=== PATIENT | female | born 1960 | race Asian ===

== ENCOUNTER 2017-06-10 13:27 | Emergency (ER) | payer OTHER ==
[~2017-06-10] VITALS: Ht 165.1 cm; Wt 54.4 kg
[2017-06-10 13:42] VITALS: BP 126/108
--- NOTE | 2017-06-10 13:47 | NUR ---
PT AMB TO BED 8
--- NOTE | 2017-06-10 13:48 | NUR ---
C/O LBP X2 DAYS. PT STATES SHE WAS ATTEMPTING TO LIFT SOMETHING OFF THE FLOOR AND FELT IMMEDIATE PAIN IN HER LOWER BACK. DENIES N/V/D; SKIN IS PINK/WARM/DRY; AAOX4 WITH EVEN AND STEADY GAIT; LUNGS CLEAR BL; HR EVEN AND REGULAR; PT DENIES ANY FEVER, CP, SOB, OR COUGH AT THIS TIME; PATIENT STATES PAIN OF 8/10 AT THIS TIME; VSS; PATIENT POSITIONED FOR COMFORT; HOB ELEVATED; BEDRAILS UP X2; BED DOWN. ER MD MADE AWARE OF PT STATUS.
--- NOTE | 2017-06-10 13:59 | NUR ---
Patient being evaluated by OCHOA at bedside.
[2017-06-10] MEDS ORDERED: HYDROcodone/APAP 5/325 MG 1 TAB TAB PO ONE (14:10)
--- NOTE | 2017-06-10 14:13 | NUR ---
PT TAKEN TO CT VIA GURABENA, ACCOMPANIED BY CRISTINA TECT.
--- NOTE | 2017-06-10 14:38 | NUR ---
lab at bedside.
--- NOTE | 2017-06-10 14:45 | NUR ---
pt sts pain3/10.Patient appears to be resting comfortably in bed. Vital Signs within normal limits. Respirations even and unlabored.WILL CONTINUE TO MONITOR.
[2017-06-10 14:52] LABS: BASOPHILS # (AUTO) 0.3 K/uL (0.00-0.22); EOSINOPHILS # (AUTO) 0.2 K/uL (0-0.4); EOSINOPHILS % (AUTO) 3.9 % (0.0-4.0); HEMATOCRIT 41.4 % (36-48); HEMOGLOBIN 13.4 g/dL (12.0-16.0); LYMPHOCYTES # (AUTO) 1.2 K/uL (2.5-16.5); LYMPHOCYTES % (AUTO) 19.6 % (20.5-51.1); MEAN CORPUSCULAR HEMOGLOBIN 30 pg (27-31); MEAN CORPUSCULAR HGB CONC 33 g/dL (33-37); MEAN CORPUSCULAR VOLUME 92 fL (80-94); MONOCYTES # (AUTO) 0.4 K/uL (0.8-1.0); MONOCYTES % (AUTO) 6.1 % (1.7-9.3); NEUTROPHILS # (AUTO) 4.1 K/uL (1.8-7.7); PLATELET COUNT (AUTO) 239 K/uL (140-450); RED BLOOD CELL COUNT(AUTO) 4.51 MIL/uL (4.20-5.40); WHITE BLOOD COUNT (AUTO) 6.2 K/uL (4.8-10.8)
[2017-06-10 15:03] LABS: ANION GAP 6.6 (8-16); CREATININE 0.8 mg/dL (0.6-1.3); POTASSIUM 3.6 mmol/L (3.5-5.1)
[2017-06-10 15:15] LABS: ALBUMIN 4.1 g/dL (3.4-5.0); TOTAL BILIRUBIN 0.4 mg/dL (0.0-1.0)
--- NOTE | 2017-06-10 15:21 | NUR ---
Patient being reevaluated by OCHOA at bedside.
[2017-06-10 15:40] VITALS: BP 112/74
--- NOTE | 2017-06-10 15:40 | NUR ---
Patient discharged with v/s stable. Written and verbal after care instructions given and explained. Patient alert, oriented and verbalized understanding of instructions. Ambulatory with steady gait. All questions addressed prior to discharge. ID band removed. Patient advised to follow up with PMD. Rx of NAPROXEN & NORCO given. Patient educated on indication of medication including possible reaction and side effects. Opportunity to ask questions provided and answered.
== END 2017-06-10 15:40 | disposition home or self-care (01) ==
LOC: MED 13:27
DX: M51.26 Other intervertebral disc displacement, lumbar region (principal); H47.9 Unspecified disorder of visual pathways; Z88.1 Allergy status to other antibiotic agents
CPT/HCPCS: 36415; 70450; 72125; 72131; 80053; 81002; 85025; 99285

== ENCOUNTER 2019-04-18 13:43 | Inpatient (IN) | payer OTHER ==
[~2019-04-18] VITALS: Ht 157.5 cm; Wt 48.5 kg
[2019-04-18 13:47] VITALS: BP 139/81
--- NOTE | 2019-04-18 14:00 | NUR ---
Patient ambulated to bed 3. RN evaluating patient at bedside.
--- NOTE | 2019-04-18 14:05 | NUR ---
PT C/O SHARP CP X3 DAYS. PT REPORTS MIDSTERNAL CP THAT RADIATES TO LT NECK AND SHOULDER AT 10/10. PT ALSO C/O BOTH HANDS NUMBNESS, PALPITATION, AND HEADACHE AFTER EARTHQUAKE. DENIES N/V/D; SKIN IS PINK/WARM/DRY; AAOX4 WITH EVEN AND STEADY GAIT; LUNGS CLEAR BL; HR EVEN AND REGULAR; PT DENIES ANY FEVER, SOB, OR COUGH AT THIS TIME; PATIENT STATES PAIN OF 10/10 AT THIS TIME; VSS; PATIENT POSITIONED FOR COMFORT; HOB ELEVATED; BEDRAILS UP X1; BED DOWN. ER MD MADE AWARE OF PT STATUS.
[2019-04-18 15:36] LABS: MEAN CORPUSCULAR HEMOGLOBIN 17 pg (27-31); MEAN CORPUSCULAR HGB CONC 28 g/dL (33-37); MEAN CORPUSCULAR VOLUME 59.2 fL (80-94); RED BLOOD CELL COUNT(AUTO) 2.45 MIL/uL (4.20-5.40); RED CELL DISTRIBUTION WIDTH 18.5 % (11.6-13.7); WHITE BLOOD COUNT (AUTO) 3.2 K/uL (4.8-10.8)
[2019-04-18 16:04] LABS: ANION GAP 14.5 (8-16); CARBON DIOXIDE 24.3 mmol/L (21-32); CREATININE 0.7 mg/dL (0.6-1.3); POTASSIUM 3.8 mmol/L (3.5-5.1)
[2019-04-18 16:18] LABS: ALBUMIN 3.6 g/dL (3.4-5.0); HEMATOCRIT 14.5 % (36-48); HEMOGLOBIN 4.1 g/dL (12.0-16.0); THYROID STIMULATING HORMONE 2.95 uIU/mL (0.34-3.74); TOTAL BILIRUBIN 0.4 mg/dL (0.0-1.0)
[2019-04-18 16:55] LABS: PLATELET COUNT,MANUAL 240 K/uL (150-450)
[2019-04-18 16:57] LABS: PLATELET COUNT (AUTO) 226 K/uL (140-450)
--- NOTE | 2019-04-18 16:58 | NUR ---
Dr. Hooper evaluating patient at bedside.
[2019-04-18 17:02] LABS: PROTHROMBIN TIME 9.9 secs (10.8-13.4)
[2019-04-18 17:04] LABS: LYMPHOCYTES % (MANUAL) 9 % (20-46); MONOCYTES % (MANUAL) 1 % (5-12)
[2019-04-18] MEDS ORDERED: ALBUTEROL 0.083% 2.5 MG/3 ML NEBU INH PRN (17:05)
[2019-04-18] MEDS ORDERED: ONDANSETRON 4 MG/2 ML VIAL IVP PRN (17:05)
[2019-04-18] MEDS ORDERED: HYDROcodone/APAP 5/325 MG 1 TAB TAB PO PRN (17:05)
[2019-04-18] MEDS ORDERED: MORPHINE SULFATE 4 MG/ML SYR IVP PRN (17:05)
[2019-04-18] MEDS ORDERED: ACETAMINOPHEN 325 MG TAB PO PRN (17:05)
--- NOTE | 2019-04-18 17:55 | NUR ---
RECEIVED REPORT FROM ER NURSEERIN. PATIENT AMBULATED TO BED FROM WHEELCHAIR WITH STEADY GAIT. VITAL SIGNS STABLE, BLOOD PRESSURE IN THE LOW NORMAL AT 95/54. SATING WELL ON RA, NO SIGNS OF DISTRESS NOTED. ORIENTED PATIENT TO ROOM AND UNIT AND PROVIDED CALL LIGHT. ALL NEEDS MET AT THIS TIME. SAFETY PRECAUTIONS IN PLACE.
--- NOTE | 2019-04-18 17:55 | NUR ---
Patient will be admitted to care of severe anemia. Admited to Telemetry. Will go to room 125B. Belongings list completed. Report to STAS Palomo.
--- NOTE | 2019-04-18 19:13 | NUR ---
ZEFERINO REPORT TO ADMINISTRATIVE ASSISTANT FRONT DESK RNOLIVER. PATIENT IN STABLE CONDITION, RESTING IN BED, SAFETY PRECAUTIONS IN PLACE.
[2019-04-18 19:14] VITALS: BP 92/37
--- NOTE | 2019-04-18 19:14 | NUR ---
RECEIVED REPORT FROM DAY SHIFT NURSE NAVNEET-RN AT BEDSIDE. PT RESTING IN BED, AOX4, ON ROOM AIR WITH RIGHT AC #20G-SL. DISCUSSED PLAN OF CARE AND PT VERBALIZED UNDERSTANDING. NO S/S OF RESPIRATORY DISTRESS OR DISCOMFORT NOTED AT THIS TIME. BED IN LOWEST POSITION, BED BREAKS ON, BOTH SIDE RAILS UP. BEDSIDE TABLE AND CALL LIGHT ARE WITHIN REACH. WILL CONTINUE TO MONITOR.
--- NOTE | 2019-04-18 20:00 | NUR ---
VITAL SIGNS TAKEN AND TOLERATED WELL. MRSA NARES SWAB COLLECTED. NO S/S OF RESPIRATORY DISTRESS OR DISCOMFORT NOTED AT THIS TIME. WILL CONTINUE TO MONITOR.
--- NOTE | 2019-04-18 20:34 | NUR ---
PT C/O HEADACHE- TYLENOL WAS GIVEN AND TOLERATED WELL. NO S/S OF RESPIRATORY DISTRESS OR DISCOMFORT NOTED AT THIS TIME. WILL CONTINUE TO MONITOR.
--- NOTE | 2019-04-18 21:00 | NUR ---
SPOKE WITH DR. GARCIAS REGARDING CT WITH CONTRAST CONSENT AND BLOOD TRANSFUSION. MD CURRENTLY DOES NOT HAVE A FAX AVAILABLE AND WILL SIGN CONSENTS ONCE ON HOSPITAL GROUNDS TOMORROW. RADIOLOGY DEPARTMENT AWARE AND WILL SCHEDULED CT ACCORDINGLY. CHARGE NURSE NOEMY AWARE. CONSENT FOR BLOOD TRANSFUSION SIGNED AND IN PT CHART.
--- NOTE | 2019-04-18 23:00 | NUR ---
PT RESTING IN BED. NO S/S OF RESPIRATORY DISTRESS OR DISCOMFORT NOTED AT THIS TIME. WILL CONTINUE TO MONITOR.
[2019-04-19] VITALS: BP 80/47
--- NOTE | 2019-04-19 | NUR ---
VITAL SIGNS TAKEN AND TOLERATED WELL. NO S/S OF RESPIRATORY DISTRESS OR DISCOMFORT NOTED AT THIS TIME. WILL CONTINUE TO MONITOR.
--- NOTE | 2019-04-19 01:20 | NUR ---
FIRST UNIT OF RBC'S STARTED AND TOLERATING WELL. NO S/S OF RESPIRATORY DISTRESS OR DISCOMFORT NOTED AT THIS TIME. WILL CONTINUE TO MONITOR.
--- NOTE | 2019-04-19 02:00 | NUR ---
PT SLEEPING IN BED. NO S/S OF RESPIRATORY DISTRESS OR DISCOMFORT NOTED AT THIS TIME. WILL CONTINUE TO MONITOR.
[2019-04-19 04:00] VITALS: BP 95/55
--- NOTE | 2019-04-19 04:00 | NUR ---
VITAL SIGNS TAKEN AND TOLERATED WELL. NO S/S OF RESPIRATORY DISTRESS OR DISCOMFORT NOTED AT THIS TIME. WILL CONTINUE TO MONITOR.
--- NOTE | 2019-04-19 05:10 | NUR ---
SECOND BAG OF RBC'S HAS BEEN STARTED. PT TOLERATING WELL. NO S/S OF RESPIRATORY DISTRESS OR DISCOMFORT NOTED AT THIS TIME. WILL CONTINUE TO MONITOR.
--- NOTE | 2019-04-19 06:00 | NUR ---
PT SLEEPING IN BED. NO S/S OF RESPIRATORY DISTRESS OR DISCOMFORT NOTED AT THIS TIME. WILL CONTINUE TO MONITOR.
--- NOTE | 2019-04-19 07:20 | NUR ---
RECEIVED BEDSIDE REPORT FROM MISSILE MECHANIC NURSE FOR CONTINUITY OF CARE. PATIENT IS AWAKE AND RESTING ON BED AT THIS TIME. PATIENT IS AAOX4. RESPIRATION EVEN AND UNLABORED ON RA. DENIED PAIN AND SOB AT THIS TIME. NO SIGNS OF DISTRESS NOTED. IV ON RAC 20G, CLEAN AND INTACT, SL PER MD ORDER.SKIN INTACT AND CLEAN. PATIENT IS ABLE TO AMBULATE WITH STEADY GAIT AND CONTINENT. DISCUSSED PLAN OF CARE WITH PATIENT AND PATIENT VERBALIZED UNDERSTANDING. SAFETY MEASURES IN PLACE. BED IN LOW POSITION AND CALL LIGHT WITHIN REACH. INSTRUCTED PATIENT TO USE THE CALL LIGHT FOR ANY ASSISTANCE AND PATIENT WAS AWARE.
[2019-04-19 08:00] VITALS: BP 95/64
--- NOTE | 2019-04-19 08:11 | NUR ---
PATIENT HAS BEEN SCREENED AND CATEGORIZED MODERATE NUTRITION RISK. PATIENT WILL BE SEEN WITHIN 3-5 DAYS OF ADMISSION. 04/21/19[address]
--- NOTE | 2019-04-19 09:35 | NUR ---
PATIENT IS GETTING BLOOD TRANSFUSION AT THIS TIME. NO ALLERGIC REACTION. DENIED PAIN AND SOB. VITAL SIGNS ARE WITHIN PATIENT'S NORMAL PARAMETER. NO SIGNS OF DISTRESS NOTED. SAFETY MEASURES IN PLACE. TELE MONITOR ATTACHED. BED IN LOW POSITION AND CALL LIGHT WITHIN REACH. INSTRUCTED PATIENT TO USE THE CALL LIGHT FOR ANY ASSISTANCE AND PATIENT WAS AWARE.
--- NOTE | 2019-04-19 11:32 | NUR ---
CONTACTED [facility] AT [phone], SPOKE TO JESSICA. SHE WAS ABLE TO PROVIDE ME WITH APRIL 27, 2019 AT 0830 FOR FOLLOW UP VISIT. COPY OF APPOINTMENT PROVIDED TO THE PATIENT.
--- NOTE | 2019-04-19 11:35 | NUR ---
PATIENT IS RESTING ON BED. BLOOD TRANSFUSION IS INFUSING. RESPIRATION EVEN AND UNLABORED ON RA. PATIENT DENIED PAIN AND SOB. NO BLOOD TRANSFUSION ALLERGIC REACTION NOTED. VITAL SIGNS MONITOR CLOSELY. SAFETY MEASURES IN PLACE. TELE MONITOR IN PLACE. BED IN LOW POSITION AND CALL LIGHT WITHIN REACH. INSTRUCTED PATIENT TO USE THE CALL LIGHT FOR ANY ASSISTANCE AND PATIENT WAS AWARE.
[2019-04-19 12:00] VITALS: BP 101/62
--- NOTE | 2019-04-19 13:10 | NUR ---
PATIENT FINISHED THE 3RD BAG OF BLOOD TRANSFUSION. NO ALLERGIC REACTION NOTED. RESPIRATION EVEN AND UNLABORED ON RA. VITAL SIGNS ARE WITHIN NORMAL PARAMETER; TEMP 98.5, BP 105/71, PULSE 60, RR 18, AND DENIED PAIN. NO SIGNS OF DISTRESS NOTED. PATIENT IS AWAKE AND TALKING ON HER PHONE AT THIS TIME. SAFETY MEASURES IN PLACE. TELE MONITOR ATTACHED. BED IN LOW POSITION AND CALL LIGHT WITHIN REACH. INSTRUCTED PATIENT TO USE THE CALL LIGHT FOR ANY ASSISTANCE AND PATIENT WAS AWARE.
--- NOTE | 2019-04-19 14:17 | NUR ---
STARTED 4TH BAG OF RBC, PATIENT TOLERATED WELL. NO ALLERGIC REACTION NOTED. DENIED PAIN AND SOB. VITAL SIGNS ARE WITHIN PATIENT'S NORMAL PARAMETER. PATIENT IS USING HER PHONE ON BED. SAFETY MEASURES IN PLACE. TELE MONITOR ATTACHED. BED IN LOW POSITION AND CALL LIGHT WITHIN REACH. INSTRUCTED PATIENT TO USE THE CALL LIGHT FOR ANY ASSISTANCE AND PATIENT WAS AWARE.
--- NOTE | 2019-04-19 15:15 | NUR ---
PATIENT IS RECEIVING BLOOD TRANSFUSION AT THIS TIME. RESPIRATION EVEN AND UNLABORED ON RA. DENIED PAIN. VITAL SIGNS ARE NORMAL WITHIN PATIENT'S PARAMETER; TEMP 98.2, BP 109/73, PULSE 73, RR 18, AND DENIED PAIN. NO BLOOD TRANSFUSION ALLERGIC REACTION NOTED. SAFETY MEASURES IN PLACE. TELE MONITOR ATTACHED. BED IN LOW POSITION AND CALL LIGHT WITHIN REACH. INSTRUCTED PATIENT TO USE THE CALL LIGHT FOR ANY ASSISTANCE AND PATIENT WAS AWARE.
[2019-04-19 16:00] VITALS: BP 110/69
--- NOTE | 2019-04-19 17:25 | NUR ---
PATIENT HAS COMPLETED THE LAST UNIT OF RBC. PATIENT IS AWAKE AND RESTING ON BED. PATIENT DENIED PAIN AND SOB. NO BLOOD TRANSFUSION ALLERGIC REACTION NOTED. VITALS SIGNS TAKEN; TEMP 98.3, PULSE 60, BP 109/70, RR 18. SAFETY MEASURES IN PLACE. TELE MONITOR IN PLACE. BED IN LOW POSITION AND CALL LIGHT WITHIN REACH. INSTRUCTED PATIENT TO USE THE CALL LIGHT FOR ANY ASSISTANCE AND PATIENT WAS AWARE.
--- NOTE | 2019-04-19 18:15 | NUR ---
PATIENT IS GOING TO THE RADIOLOGY DEPT FOR CT SCAN AND ACCOMPANIED BY CRISTINA ROCA. PATIENT IS IN STABLE CONDITION. NO SIGNS OF DISTRESS NOTED.
--- NOTE | 2019-04-19 18:27 | NUR ---
PATIENT CAME BACK FROM CT SCAN. NO SIGNS OF DISTRESS NOTED. SAFETY MEASURES IN PLACE. TELE MONITOR ATTACHED. BED IN LOW POSITION AND CALL LIGHT WITHIN REACH. INSTRUCTED PATIENT TO USE THE CALL LIGHT FOR ANY ASSISTANCE AND PATIENT WAS AWARE.
--- NOTE | 2019-04-19 19:05 | NUR ---
RECEIVED BEDSIDE REPORT FROM DAY SHIFT NURSE. PATIENT IS AWAKE, ALERT, AND COOPERATIVE. RESPIRATION EVEN UNLABORED ON ROOM AIR. NO DISTRESS NOTED. SKIN IS WARM AND DRY. IV PATENT AND INTACT. PLAN OF CARE WAS DISCUSSED. ALL SAFETY MEASURES IN PLACE. BED IS AT LOW POSITION. CALL LIGHT WITHIN REACH AND VERBALIZES ITS USE. WILL CONTINUE TO MONITOR.
--- NOTE | 2019-04-19 19:15 | NUR ---
ENDORSED PATIENT AT BEDSIDE TO FAT PURIFICATION WORKER NURSE FOR CONTINUITY OF CARE. PATIENT IS AWAKE AND RESTING ON BED. NO SIGNS OF DISTRESS NOTED. SAFETY MEASURES IN PLACE. TELE MONITOR IN PLACE. BED IN LOW POSITION AND CALL LIGHT WITHIN REACH.
[2019-04-19 19:54] LABS: BASOPHILS % (AUTO) 0.8 % (0.0-2.0); EOSINOPHILS # (AUTO) 0.2 K/uL (0-0.4); EOSINOPHILS % (AUTO) 2.5 % (0.0-4.0); HEMATOCRIT 31.6 % (36-48); HEMOGLOBIN 10.2 g/dL (12.0-16.0); LYMPHOCYTES # (AUTO) 0.9 K/uL (2.5-16.5); LYMPHOCYTES % (AUTO) 13.1 % (20.5-51.1); MEAN CORPUSCULAR HEMOGLOBIN 24 pg (27-31); MEAN CORPUSCULAR HGB CONC 32 g/dL (33-37); MEAN CORPUSCULAR VOLUME 73.6 fL (80-94); MONOCYTES # (AUTO) 0.5 K/uL (0.8-1.0); MONOCYTES % (AUTO) 7.4 % (1.7-9.3); NEUTROPHILS % (AUTO) 76.2 % (42.2-75.2); PLATELET COUNT (AUTO) 187 K/uL (140-450); RED BLOOD CELL COUNT(AUTO) 4.29 MIL/uL (4.20-5.40); RED CELL DISTRIBUTION WIDTH 27.6 % (11.6-13.7); WHITE BLOOD COUNT (AUTO) 6.5 K/uL (4.8-10.8)
[2019-04-19 20:00] VITALS: BP 109/69
--- NOTE | 2019-04-19 20:00 | NUR ---
INITIAL ASSESSMENT DONE. VITALS WERE TAKEN. PATIENT CONDITION STABLE. NO DISTRESS NOTED. WILL CONTINUE TO MONITOR.
[2019-04-19 20:08] LABS: ANION GAP 14.1 (8-16); CARBON DIOXIDE 25.3 mmol/L (21-32); CREATININE 0.8 mg/dL (0.6-1.3); POTASSIUM 4.4 mmol/L (3.5-5.1)
[2019-04-19 20:27] LABS: MAGNESIUM 2.1 mg/dL (1.8-2.4); PHOSPHORUS 3.8 mg/dL (2.5-4.9)
--- NOTE | 2019-04-19 21:00 | NUR ---
CHECKED PATIENT. PATIENT IN BED WATCHING TV RESPIRATION EVEN UNLABORED ON ROOM AIR. NO DISTRESS NOTED. WILL CONTINUE TO MONITOR.
--- NOTE | 2019-04-19 22:30 | NUR ---
CHECKED PATIENT. PATIENT SLEEPING RESPIRATION EVEN UNLABORED ON ROOM AIR. NO DISTRESS NOTED. WILL CONTINUE TO MONITOR.
[2019-04-20] VITALS: BP 118/73
--- NOTE | 2019-04-20 | NUR ---
VITALS WERE TAKEN. PATIENT CONDITION STABLE. NO DISTRESS NOTED. DENIES PAIN. WILL CONTINUE TO MONITOR.
--- NOTE | 2019-04-20 02:00 | NUR ---
CHECKED ON PATIENT. PATIENT SLEEPING RESPIRATION EVEN UNLABORED ON ROOM AIR. NO DISTRESS NOTED. WILL CONTINUE TO MONITOR.
[2019-04-20 04:00] VITALS: BP 104/64
--- NOTE | 2019-04-20 04:00 | NUR ---
VITALS WERE TAKEN. PATIENT CONDITION STABLE. DENIES PAIN AND NO DISTRESS NOTED. WILL CONTINUE TO MONITOR.
[2019-04-20 06:12] LABS: BASOPHILS # (AUTO) 0.1 K/uL (0.00-0.22); EOSINOPHILS # (AUTO) 0.2 K/uL (0-0.4); HEMOGLOBIN 10.1 g/dL (12.0-16.0); MEAN CORPUSCULAR HEMOGLOBIN 24 pg (27-31); MEAN CORPUSCULAR HGB CONC 32 g/dL (33-37); MONOCYTES # (AUTO) 0.4 K/uL (0.8-1.0); RED BLOOD CELL COUNT(AUTO) 4.26 MIL/uL (4.20-5.40)
[2019-04-20 06:16] LABS: CARBON DIOXIDE 25.2 mmol/L (21-32); CREATININE 0.8 mg/dL (0.6-1.3); POTASSIUM 4.2 mmol/L (3.5-5.1)
[2019-04-20 06:28] LABS: MAGNESIUM 2.2 mg/dL (1.8-2.4); PHOSPHORUS 3.6 mg/dL (2.5-4.9)
[2019-04-20 06:36] LABS: BASOPHILS % (AUTO) 1.3 % (0.0-2.0); EOSINOPHILS % (AUTO) 3.3 % (0.0-4.0); HEMATOCRIT 31.2 % (36-48); LYMPHOCYTES % (AUTO) 18.5 % (20.5-51.1); MEAN CORPUSCULAR VOLUME 73.2 fL (80-94); NEUTROPHILS # (AUTO) 3.8 K/uL (1.8-7.7); NEUTROPHILS % (AUTO) 68.9 % (42.2-75.2); PLATELET COUNT (AUTO) 184 K/uL (140-450); RED CELL DISTRIBUTION WIDTH 27.5 % (11.6-13.7); WHITE BLOOD COUNT (AUTO) 5.5 K/uL (4.8-10.8)
--- NOTE | 2019-04-20 07:20 | NUR ---
ENDORSED PATIENT TO DAY SHIFT NURSE FOR CONTINUITY OF CARE. PATIENT IN STABLE CONDITION.
--- NOTE | 2019-04-20 07:35 | NUR ---
RECEIVED REPORT FROM CONTESTANT COORDINATOR NURSE. PT AAOX4, COOPERATIVE. RESPIRATIONS EVEN AND UNLABORED ON RA. IV ON RT AC 20 GA ON SALINE LOCK, FLUSHING WITH NO RESISTANCE. STOMACH IS SOFT, LBM 7/9. NO C/O PAIN AT THIS TIME. SKIN IS INTACT, WARM TO TOUCH. EXPLAINED POC TO PT, PT VERBALIZED UNDERSTANDING. CALL LIGHT WITHIN REACH. WILL CONTINUE TO MONITOR.
[2019-04-20 08:00] VITALS: BP 98/66
[2019-04-20 12:00] VITALS: BP 105/71
--- NOTE | 2019-04-20 12:00 | NUR ---
PT HAS NO C/O PAIN AND NO SIGNS OF DISTRESS AT THIS TIME. PT IS EATING LUNCH, CALM AND COOPERATIVE.
--- NOTE | 2019-04-20 15:35 | NUR ---
PT GIVEN DISCHARGE INSTRUCTIONS. ALL PAPERWORK SIGNED AND QUESTIONS ANSWERED. ALL BELONGINGS ARE IN PT POSSESSION. IV DC'ed, CANNULA INTACT, NO ACTIVE BLEEDING NOTED. WRISTBANDS AND TELE MONITOR REMOVED. PATIENT REFUSED W/C. AMBULATE OUT OF UNITY WITH STEADY GAIT, ACCOMPANIED BY NURSE. PATIENT IS IN STABLE CONDITION.
== END 2019-04-20 15:35 | disposition home or self-care (01) | DRG 663 ==
LOC: MED 13:43 → MMU 17:04
PROVIDERS: ADMIT Internal Medicine Pulmonary Disease; ATTEND Internal Medicine Pulmonary Disease
PROC: 30233N1 Transfusion of Nonautologous Red Blood Cells into Peripheral Vein, Percutaneous Approach (ICD-10-PCS; principal; 2019-04-19)
DX: D64.9 Anemia, unspecified (principal); F41.9 Anxiety disorder, unspecified; Z88.1 Allergy status to other antibiotic agents
CPT/HCPCS: 36415; 71045; 80048; 80053; 82728; 83540; 83735; 84100; 84443; 84484; 85025; 85045; 85610; 85730; 86886; 86900; 86901; 86920; 87081; 93005; 99285; J7030; P9016; Q0092; Q9967

== ENCOUNTER 2020-09-05 19:26 | Inpatient (IN) | payer OTHER, SELFPAY ==
[~2020-09-05] VITALS: Ht 154.9 cm; Wt 50.8 kg
[2020-09-05 19:37] VITALS: BP 101/60
--- NOTE | 2020-09-05 19:59 | NUR ---
PT SENT TO LOBBY- WAITING FOR A ROOM IN THE ED. PT IS NOT IN ANY ACUTE DISTRESS AT THIS TIME.
[2020-09-05 21:12] LABS: BASOPHILS % (AUTO) 0.5 % (0.0-2.0); EOSINOPHILS % (AUTO) 0.4 % (0.0-4.0); LYMPHOCYTES # (AUTO) 0.5 K/uL (2.5-16.5); LYMPHOCYTES % (AUTO) 9.7 % (20.5-51.1); MEAN CORPUSCULAR HEMOGLOBIN 22 pg (27-31); MEAN CORPUSCULAR HGB CONC 31 g/dL (33-37); MEAN CORPUSCULAR VOLUME 70.3 fL (80-94); MONOCYTES # (AUTO) 0.2 K/uL (0.8-1.0); MONOCYTES % (AUTO) 4.6 % (1.7-9.3); NEUTROPHILS # (AUTO) 4.4 K/uL (1.8-7.7); NEUTROPHILS % (AUTO) 84.8 % (42.2-75.2); PLATELET COUNT (AUTO) 221 K/uL (140-450); RED BLOOD CELL COUNT(AUTO) 2.32 MIL/uL (4.20-5.40); RED CELL DISTRIBUTION WIDTH 16.8 % (11.6-13.7); WHITE BLOOD COUNT (AUTO) 5.2 K/uL (4.8-10.8)
--- NOTE | 2020-09-05 21:14 | NUR ---
CRITICAL LAB REC[facility]ED [facility]: HEMOGLOBIN 5.0, HEMATOCRIT 16.3. ERMD MADE AWARE.
[2020-09-05 21:15] LABS: HEMATOCRIT 16.3 % (36-48)
[2020-09-05 21:24] LABS: ALBUMIN 3.7 g/dL (3.4-5.0); CARBON DIOXIDE 26.7 mmol/L (21-32); CREATININE 0.6 mg/dL (0.6-1.3); POTASSIUM 3.7 mmol/L (3.5-5.1); TOTAL BILIRUBIN 0.3 mg/dL (0.0-1.0)
--- NOTE | 2020-09-05 21:28 | NUR ---
PT AMBULATED TO RESTROOM IN THE LOBBY WITH STEADY GAIT. NO ACUTE DISTRESS AT THIS TIME
--- NOTE | 2020-09-05 21:31 | NUR ---
PT AMBULATED FROM THE LOBBY RESTROOM BACK TO HER CHAIR IN THE LOBBY WITH STEADY GAIT. PT IS NOT IN ACUTE DISTRESS AT THIS TIME
--- NOTE | 2020-09-05 21:42 | NUR ---
PT AMBULATED TO BED 7
--- NOTE | 2020-09-05 21:46 | NUR ---
Dr. Avina examining patient.
--- NOTE | 2020-09-05 21:50 | NUR ---
Female Jitney Driver accompanied female patient for Rectal Exam BY DR. TELLO.
--- NOTE | 2020-09-05 22:20 | NUR ---
CONSENT SIGNED FOR BLOOD TRANSFUSION
[2020-09-05] MEDS ORDERED: ONDANSETRON 4 MG/2 ML VIAL IVP PRN (22:25)
[2020-09-05] MEDS ORDERED: ACETAMINOPHEN 325 MG TAB PO PRN (22:25)
[2020-09-05 22:41] LABS: PROTHROMBIN TIME 9.7 secs (10.8-13.4)
--- NOTE | 2020-09-06 00:13 | NUR ---
ASSISTED TO BR
[2020-09-06 00:45] VITALS: BP 101/62
--- NOTE | 2020-09-06 00:50 | NUR ---
TO 120A VIA RAEGAN FOX ATTACHED. PT DENIES PAIN OR DISCOMFORT. REPORT WAS GIVEN TO STAS BENSON
--- NOTE | 2020-09-06 00:53 | NUR ---
Patient will be admitted to care of []. Admited to [g ED.ADMIT]. Will go to room[]. Belongings list completed. Report to [].
--- NOTE | 2020-09-06 00:55 | NUR ---
Patient will be admitted to care of DR. CANO. Admited to TELE. Will go to room 220A. Belongings list completed. Report to STAS
--- NOTE | 2020-09-06 01:07 | NUR ---
ADMITTED THE PATIENT FROM ER VIA GURNEY. PATIENT A/A/OX4,AMBULATORY. NO SIGN AND SYMPTOMS OF DISTRESS NOTED ON ARRIVAL TO THE FLOOR. DENIES ANY CHEST PAIN,SOB AND DIZZINESS. ORIENTED THE PT TO THE ROOM SETTING AND USE OF CALL LIGHT SYSTEM. VSS, AFEBRILE SATING 100% ON RA. SR ON SALES PROFESSIONAL BILINGUAL, HR -88. AWAITING FOR BLOOD BANK TO CALL IF THE BLOOD IS READY. CONSENT SIGNED AND VERIFIED. PT VERBALIZED UNDERSTANDING WITH THE POC. CALL LIGHT WITHIN REACH. WILL CONTINUE POC AND MONITORING.
[2020-09-06] MEDS: NACL 0.9% 1,000 ML IV SCH ×2 (02:08→14:59)
--- NOTE | 2020-09-06 02:37 | NUR ---
STARTED THE BLOOD TRANSFUSION ORDERED. NO TRANSFUSION REACTION NOTED AFTER 15 MINUTES AND AFTER 30 MINUTES OF BLOOD TRANSFUSION. NO COMPLAIN FROM THE PATIENT.
[2020-09-06 04:00] VITALS: BP 100/65
--- NOTE | 2020-09-06 04:00 | NUR ---
PATIENT VITAL SIGNS STABLE,AFEBRILE, SATING 100% ON RA.NO COMPLAIN OF PAIN AT THIS TIME.
--- NOTE | 2020-09-06 05:24 | NUR ---
BLOOD TRANSFUSION IS DONE. NO TRANSFUSION REACTION NOTED AT THIS TIME. PT NOT IN ANY DISTRESS. NO COMPLAIN FROM THE PT. NOTIFIED FRONT DESK ADMINISTRATOR RAY THAT THE TRANSFUSION IS DONE AND STATED THAT THE LABS WILL BE DRAWN AT 0730.
--- NOTE | 2020-09-06 06:51 | NUR ---
PT STABLE. NO ACUTE EVENTS THROUGHOUT THE NIGHT. NO SIGN AND SYMPTOMS OF DISTRESS NOTED AT THIS TIME. NO COMPLAIN OF PAIN. ALL NEEDS ATTENDED. CALL LIGHT WITHIN REACH. WILL ENDORSE THE PT TO THE ONCOMING RN FOR CONTINUITY OF CARE.
--- NOTE | 2020-09-06 07:33 | NUR ---
RECEIVED BEDSIDE REPORT FROM BELL MAKER NURSE. PT IN BED SLEEPING, AROUSABLE TO NAME, ABLE TO MAKE NEEDS KNOWN. ON RA, BREATHING EVEN AND UNLABORED, NO SIGNS OF ACUTE DISTRESS NOTED. RFA 18 G CLEAN DRY AND INTACT, LFA 18 G CLEAN AND INTACT INFUSING NS @ 80 ML/HR. SKIN INTACT. BED IN LOW POSITION. EDUCATIONAL SPEECH LANGUAGE CLINICIAN IN PLACE. SAFETY MEASURES IN PLACE.
[2020-09-06 08:00] VITALS: BP 97/57
[2020-09-06 08:10] LABS: BASOPHILS % (AUTO) 1.2 % (0.0-2.0); EOSINOPHILS % (AUTO) 1.1 % (0.0-4.0); LYMPHOCYTES # (AUTO) 0.8 K/uL (2.5-16.5); LYMPHOCYTES % (AUTO) 20.1 % (20.5-51.1); MEAN CORPUSCULAR HEMOGLOBIN 23 pg (27-31); MEAN CORPUSCULAR HGB CONC 32 g/dL (33-37); MEAN CORPUSCULAR VOLUME 73.2 fL (80-94); MONOCYTES # (AUTO) 0.5 K/uL (0.8-1.0); MONOCYTES % (AUTO) 12.1 % (1.7-9.3); NEUTROPHILS # (AUTO) 2.5 K/uL (1.8-7.7); NEUTROPHILS % (AUTO) 65.5 % (42.2-75.2); PLATELET COUNT (AUTO) 181 K/uL (140-450); RED BLOOD CELL COUNT(AUTO) 2.65 MIL/uL (4.20-5.40); RED CELL DISTRIBUTION WIDTH 17.1 % (11.6-13.7); WHITE BLOOD COUNT (AUTO) 3.8 K/uL (4.8-10.8)
[2020-09-06 08:21] LABS: ALBUMIN 3.2 g/dL (3.4-5.0); ANION GAP 11.4 (8-16); CARBON DIOXIDE 26.3 mmol/L (21-32); CREATININE 0.7 mg/dL (0.6-1.3); POTASSIUM 3.7 mmol/L (3.5-5.1); TOTAL BILIRUBIN 0.4 mg/dL (0.0-1.0)
--- NOTE | 2020-09-06 08:25 | NUR ---
PATIENT HAS BEEN SCREENED AND CATEGORIZED LOW NUTRITION RISK. PATIENT WILL BE SEEN WITHIN 7 DAYS OF ADMISSION. 09/12/2020 REINIER GREEN MBA, RD
[2020-09-06 09:15] LABS: HEMATOCRIT 19.4 % (36-48); HEMOGLOBIN 6.1 g/dL (12.0-16.0)
--- NOTE | 2020-09-06 09:16 | NUR ---
RECEIVED CRITICAL LAB FOR HGB 6.1 AND HCT 19.4, PAGED MD FOR DR HAHN, AND AWAITING FOR MD TO RETURN CALL.
--- NOTE | 2020-09-06 09:19 | NUR ---
DR GARNICA WAS NOTIFIED FOR CRITICAL LAB OF HGB 6.1 ANT HCT 19.1 AT NURSING STATION. NO ORDER RECEIVED FROM AT THIS TIME.
--- NOTE | 2020-09-06 09:45 | NUR ---
PT RESTING IN BED WATCHING TV. AWAKE AND ALERT, ABLE TO MAKE NEEDS KNOWN. BREATHING EVEN AND UNLABORED, NO SIGNS OF ACUTE DISTRESS NOTED. BED IN LOW POSITION. QUALITY ASSURANCE MONITOR CHASSIS IN PLACE. SAFETY MEASURES IN PLACE.
--- NOTE | 2020-09-06 10:05 | NUR ---
DR GARNICA ROUNDING ON PT AT BEDSIDE, PT ON THE PHONE SPEAKING TO HER SON.
--- NOTE | 2020-09-06 11:20 | NUR ---
PATIENT AWAKE AND RESTING ON BED AT THIS TIME. DENIED PAIN, SOB AND ANY DISTRESS. HOLE PUNCHER STRAP IN PLACE. SAFETY MEASURES IN PLACE.
[2020-09-06 12:00] VITALS: BP 97/71
--- NOTE | 2020-09-06 12:30 | NUR ---
ATTENDED TO CALL LIGHT, PATIENT NEEDS TO USE THE BATHROOM, DISCONNECTED FROM IV PUMP, PATIENT AMBULATED TO BATHROOM AND BACK TO BED WITH STEADY GAIT. NO SIGNS OF DISTRESS NOTED. HAND SILVERING SUPERVISOR IN PLACE. SAFETY MEASURES IN PLACE.
--- NOTE | 2020-09-06 13:34 | NUR ---
1ST UNIT BLOOD TRANSFUSION STARTED, WILL MONITOR VITAL SIGNS CLOSELY. PATIENT IS RESTING ON BED, DENIED PAIN, SOB AND ANY DISTRESS. ESTIMATOR PAPERBOARD BOXES IN PLACE. SAFETY MEASURES IN PLACE.
--- NOTE | 2020-09-06 14:26 | NUR ---
PATIENT AWAKE AND RESTING ON BED. VITAL SIGNS WITHIN NORMAL, NO SIGNS OF BLOOD TRANSFUSION ADVERSE REACTION. LOG GRADER IN PLACE. SAFETY MEASURES IN PLACE.
--- NOTE | 2020-09-06 14:48 | NUR ---
DR MOJICA IS ASSESSING AND TALKING TO PT AT BEDSIDE.
[2020-09-06 16:00] VITALS: BP 106/65
--- NOTE | 2020-09-06 16:15 | NUR ---
BLOOD TRANSFUSION 1 UNIT COMPLETED, PATIENT DENIED PAIN, SOB AND ANY DISTRESS. NO ADVERSE REACTION NOTED. PATIENT IS AWAKE AND RESTING ON BED AT THIS TIME. NO SIGNS OF ACUTE DISTRESS NOTED. TELE MONITOR IN PLACE. SAFETY MEASURES IN PLACE.
[2020-09-06] MEDS: SODIUM FERRIC GLUCONATE 125 MG in NACL 0.9% 100 ML IV SCH (17:42)
--- NOTE | 2020-09-06 18:01 | NUR ---
SPOKE TO BLOOD BLANK TO CHECK READINESS OF BLOOD PRODUCTS TO BE ADMINISTERED. PER HERMELINDA, HE WILL ORDER 2 MORE UNITS AND WILL HAVE IT READY FOR REINSTATEMENT CLERK NURSE.
--- NOTE | 2020-09-06 19:00 | NUR ---
RECEIVED BEDSIDE REPORT FROM DAY SHIFT NURSE. PATIENT IS AWAKE, ALERT, AND COOPERATIVE. RESPIRATION EVEN UNLABORED ON ROOM AIR. NO DISTRESS NOTED. SKIN IS WARM AND DRY. IV PATENT AND INTACT. PLAN OF CARE WAS DISCUSSED. ALL SAFETY MEASURES IN PLACE. BED IS AT LOW POSITION. CALL LIGHT WITHIN REACH. WILL CONTINUE TO MONITOR.
--- NOTE | 2020-09-06 19:21 | NUR ---
ENDORSED PT TO CROCHET BEADER NURSE FOR CONTINUITY OF CARE. ENDORSED TO CROCHET BEADER NURSE, 2 MORE UNITS OF BLOOD PENDING. PT IN STABLE CONDITION.
[2020-09-06 20:00] VITALS: BP 99/65
[2020-09-06] MEDS: POLYETHYLENE GLYCOL 17 GM/PKT PO SCH ×2 (20:29→21:00)
[2020-09-06] MEDS: HYDROCORTISONE SUPPOSITORY 25 MG SUPP RC SCH (20:30)
--- NOTE | 2020-09-06 20:30 | NUR ---
ALL SCHEDULED MEDS WERE GIVEN. PATIENT REFUSED MIRALAX. PER PATIENT MIRALAX MAKES HER STOMACH HURTS. EXPLAINED THE PURPOSE OF THE MEDICATION AND SIDE EFFECTS. PATIENT STILL REFUSED. WILL CONTINUE TO MONITOR.
--- NOTE | 2020-09-06 21:30 | NUR ---
BLOOD TRANSFUSION STARTED. NO TRANSFUSION REACTION NOTED. WILL CONTINUE TO MONITOR.
--- NOTE | 2020-09-06 23:25 | NUR ---
CHECKED PATIENT. BLOOD TRANSFUSION STILL RUNNING. NO BLOOD TRANSFUSION REACTION NOTED. WILL CONTINUE TO MONITOR.
[2020-09-07] VITALS: BP 112/76
--- NOTE | 2020-09-07 00:15 | NUR ---
VITALS WERE TAKEN. PATIENT IN STABLE CONDITION. NO DISTRESS NOTED. WILL CONTINUE TO MONITOR.
--- NOTE | 2020-09-07 00:15 | NUR ---
BLOOD TRANSFUSION DONE. NO TRANSFUSION REACTION NOTED. 4TH BAG WILL BE TRANSFUSE ONCE THE BAG IS AVAILABLE. WILL CONTINUE TO MONITOR.
--- NOTE | 2020-09-07 00:32 | NUR ---
CALLED ADMITTING BY [facility]ANO [facility] TO CHANGE ADMITTING TO .THEY SAID THAT THEY WILL ENDORSED TO AM SHIFT TO DO THAT.
--- NOTE | 2020-09-07 02:23 | NUR ---
WENT TO LAB. PER LAB PERSONNEL BLOOD PRODUCT IS NOT READY. TRY AGAIN IN AN HOUR.
--- NOTE | 2020-09-07 03:45 | NUR ---
4TH BAG OF BLOOD STARTED.
[2020-09-07 04:00] VITALS: BP 114/74
--- NOTE | 2020-09-07 06:30 | NUR ---
BLOOD TRANSFUSION DONE. NO BLOOD TRANSFUSION REACTION NOTED. WILL CONTINUE TO MONITOR.
--- NOTE | 2020-09-07 07:14 | NUR ---
ENDORSED PATIENT TO DAY SHIFT NURSE AT BEDSIDE FOR CONTINUITY OF CARE
[2020-09-07 07:30] VITALS: BP 113/70
--- NOTE | 2020-09-07 07:30 | NUR ---
PT IS RESTING IS SLEEPING SEMIFOWLERS AT THIS TIME. PT IN NO APPARENT DISTRESS.
[2020-09-07] MEDS: POLYETHYLENE GLYCOL 17 GM/PKT PO SCH (09:00)
[2020-09-07] MEDS: HYDROCORTISONE SUPPOSITORY 25 MG SUPP RC SCH (09:00)
[2020-09-07 09:03] LABS: BASOPHILS % (AUTO) 0.5 % (0.0-2.0); EOSINOPHILS # (AUTO) 0.1 K/uL (0-0.4); EOSINOPHILS % (AUTO) 1.9 % (0.0-4.0); HEMOGLOBIN 12.2 g/dL (12.0-16.0); LYMPHOCYTES # (AUTO) 1.3 K/uL (2.5-16.5); LYMPHOCYTES % (AUTO) 23.8 % (20.5-51.1); MEAN CORPUSCULAR HEMOGLOBIN 26 pg (27-31); MEAN CORPUSCULAR HGB CONC 32 g/dL (33-37); MEAN CORPUSCULAR VOLUME 80.1 fL (80-94); MONOCYTES # (AUTO) 0.5 K/uL (0.8-1.0); MONOCYTES % (AUTO) 9.8 % (1.7-9.3); NEUTROPHILS # (AUTO) 3.4 K/uL (1.8-7.7); PLATELET COUNT (AUTO) 160 K/uL (140-450); RED BLOOD CELL COUNT(AUTO) 4.74 MIL/uL (4.20-5.40); RED CELL DISTRIBUTION WIDTH 18.1 % (11.6-13.7); WHITE BLOOD COUNT (AUTO) 5.3 K/uL (4.8-10.8)
[2020-09-07 09:40] LABS: ALBUMIN 3.6 g/dL (3.4-5.0); ANION GAP 14.5 (8-16); CARBON DIOXIDE 23.5 mmol/L (21-32); CREATININE 0.7 mg/dL (0.6-1.3); TOTAL BILIRUBIN 0.6 mg/dL (0.0-1.0)
[2020-09-07] MEDS ORDERED: FERR-13 PO (09:43)
[2020-09-07] MEDS ORDERED: HYDR25SU37 RC (09:43)
[2020-09-07] MEDS: SODIUM FERRIC GLUCONATE 125 MG in NACL 0.9% 100 ML IV SCH ×2 (09:50→12:37)
--- NOTE | 2020-09-07 09:58 | NUR ---
PATIENT RESTING HIGH FOWLERS ON BED, PT STATES NO PAIN OR DISCOMFORT. PT REFUSED MIRALAX PO AND HYDROCORTISONE SUPP STATING BOTH WERE INEFFECTIVE. PT STATES THAT SHE TAKES PINGTAN TEA AT HOME THAT AIDS IN BM AND WILL CONTINUE TO TAKE ONCE D/C.
[2020-09-07] MEDS: NACL 0.9% 1,000 ML IV SCH (11:26)
[2020-09-07 12:17] VITALS: BP 109/63
[2020-09-07] MEDS ORDERED: SENNA 8.6 MG TAB PO SCH ×2 (13:00→17:00)
[2020-09-07] MEDS ORDERED: POLYETHYLENE GLYCOL 17 GM/PKT PO SCH (13:15)
--- NOTE | 2020-09-07 13:56 | NUR ---
PT REFUSED MIRALAX BUT WAS WILLING TO TAKE SENNA. PT STATES NO PAIN OR DISCOMFORT AT THIS TIME.
--- NOTE | 2020-09-07 15:11 | NUR ---
PT STATES NO PAIN OR DISCOMFORT; STABLE VITALS. PT WILL BE D/C AND HAS VERBALIZES UNDERSTANDING OF F/U CARE AT HOME.
== END 2020-09-07 15:15 | disposition home or self-care (01) | DRG 254 ==
LOC: MED 19:26 → MTU 22:24
PROVIDERS: ADMIT Internal Medicine; ATTEND Internal Medicine
PROC: 30233N1 Transfusion of Nonautologous Red Blood Cells into Peripheral Vein, Percutaneous Approach (ICD-10-PCS; principal; 2020-09-06)
DX: K64.8 Other hemorrhoids (principal); K59.09 Other constipation; Z20.828 Contact with and (suspected) exposure to other viral communicable diseases; Z88.8 Allergy status to other drugs, medicaments and biological substances; D50.0 Iron deficiency anemia secondary to blood loss (chronic); D50.9 Iron deficiency anemia, unspecified
CPT/HCPCS: 36415; 36430; 76856; 80053; 83540; 84484; 85025; 85610; 85730; 86886; 86900; 86901; 86920; 87081; 93005; 99291; J2916; P9016

== ENCOUNTER 2020-10-03 11:16 | Emergency (ER) | payer OTHER, SELFPAY ==
[~2020-10-03] VITALS: Ht 162.6 cm; Wt 49.4 kg
[~2020-10-03 11:16] MED LIST: FERR-13 PO; HYDR25SU37 RC
[2020-10-03 11:59] VITALS: BP 101/72
[2020-10-03 13:07] LABS: BASOPHILS % (AUTO) 1.7 % (0.0-2.0); EOSINOPHILS # (AUTO) 0.1 K/uL (0-0.4); EOSINOPHILS % (AUTO) 4.1 % (0.0-4.0); HEMATOCRIT 28.8 % (36-48); HEMOGLOBIN 9.1 g/dL (12.0-16.0); LYMPHOCYTES # (AUTO) 0.7 K/uL (2.5-16.5); LYMPHOCYTES % (AUTO) 27.2 % (20.5-51.1); MEAN CORPUSCULAR HEMOGLOBIN 27 pg (27-31); MEAN CORPUSCULAR HGB CONC 32 g/dL (33-37); MEAN CORPUSCULAR VOLUME 84.5 fL (80-94); MONOCYTES # (AUTO) 0.2 K/uL (0.8-1.0); MONOCYTES % (AUTO) 8.5 % (1.7-9.3); NEUTROPHILS # (AUTO) 1.6 K/uL (1.8-7.7); NEUTROPHILS % (AUTO) 58.5 % (42.2-75.2); PLATELET COUNT (AUTO) 194 K/uL (140-450); RED BLOOD CELL COUNT(AUTO) 3.41 MIL/uL (4.20-5.40); RED CELL DISTRIBUTION WIDTH 21.3 % (11.6-13.7); WHITE BLOOD COUNT (AUTO) 2.7 K/uL (4.8-10.8)
[2020-10-03 13:17] LABS: ANION GAP 13.5 (8-16); CARBON DIOXIDE 27.6 mmol/L (21-32); CREATININE 0.7 mg/dL (0.6-1.3); POTASSIUM 4.1 mmol/L (3.5-5.1)
[2020-10-03 13:49] VITALS: BP 101/72
--- NOTE | 2020-10-03 13:49 | NUR ---
Patient discharged with v/s stable. Written and verbal after care instructions given and explained. Patient alert, oriented and verbalized understanding of instructions. Ambulatory with steady gait. All questions addressed prior to discharge. ID band removed. Patient advised to follow up with PMD. Rx of Magnesium citrate given. Patient educated on indication of medication including possible reaction and side effects. Opportunity to ask questions provided and answered.
== END 2020-10-03 13:49 | disposition home or self-care (01) ==
LOC: MED 11:16
DX: K64.9 Unspecified hemorrhoids (principal); K62.5 Hemorrhage of anus and rectum; Z79.899 Other long term (current) drug therapy; Z88.1 Allergy status to other antibiotic agents
CPT/HCPCS: 36415; 80048; 85025; 99283

== ENCOUNTER 2022-11-09 13:08 | Inpatient (IN) | payer OTHER ==
[~2022-11-09] VITALS: Ht 160 cm; Wt 68.0 kg
[2022-11-09 13:20] VITALS: BP 136/95
--- NOTE | 2022-11-09 13:24 | NUR ---
Patient ambulated with steady gait to bed 9
--- NOTE | 2022-11-09 13:32 | NUR ---
61F PRESENTS TO ED WITH C/O PALPITATIONS X1 DAY AND BLOODY STOOLS X3 DAYS. PT REPORTS PALPITATIONS SINCE YESTERDAY, LEFT SIDED PAIN, PT DENIES CHEST, SOB, ABD PAIN. PT CHANGED INTO GOWN, PLACED ON BEDSIDE MONITOR, BED SET TO LOWEST POSITION, SIDE RAILS X1.
--- NOTE | 2022-11-09 13:35 | NUR ---
XRAY AT BEDSIDE.
[2022-11-09 14:30] LABS: EOSINOPHILS # (AUTO) 0.1 K/uL (0-0.4); EOSINOPHILS % (AUTO) 1.8 % (0.0-4.0); LYMPHOCYTES # (AUTO) 0.8 K/uL (2.5-16.5); MEAN CORPUSCULAR HEMOGLOBIN 26 pg (27-31); MEAN CORPUSCULAR HGB CONC 33 g/dL (33-37); MEAN CORPUSCULAR VOLUME 78.9 fL (80-94); MONOCYTES # (AUTO) 0.2 K/uL (0.8-1.0); MONOCYTES % (AUTO) 7.7 % (1.7-9.3); NEUTROPHILS % (AUTO) 63.5 % (42.2-75.2); PLATELET COUNT (AUTO) 216 K/uL (140-450); RED CELL DISTRIBUTION WIDTH 17.3 % (11.6-13.7); WHITE BLOOD COUNT (AUTO) 3.2 K/uL (4.8-10.8)
[2022-11-09] MEDS ORDERED: LORazepam 2 MG/ML VIAL ONE (14:31)
[2022-11-09 14:40] LABS: HEMATOCRIT 19.7 % (36-48); HEMOGLOBIN 6.4 g/dL (12.0-16.0)
[2022-11-09 15:04] LABS: ALBUMIN 3.8 g/dL (3.4-5.0); ANION GAP 13.4 (8-16); CARBON DIOXIDE 26.3 mmol/L (21-32); CREATININE 0.7 mg/dL (0.6-1.3); POTASSIUM 3.7 mmol/L (3.5-5.1); TOTAL BILIRUBIN 0.5 mg/dL (0.0-1.0)
--- NOTE | 2022-11-09 15:22 | NUR ---
DR GUADARRAMA AT BEDSIDE WITH PINMAKER PHONE EXPLAINING BLOOD TRANSFUSION AND ADMISSION
[2022-11-09] MEDS ORDERED: PANTOPRAZOLE 40 MG INJ VIAL IVP ONE (15:35)
[2022-11-09 15:54] LABS: PROTHROMBIN TIME 9.7 secs (10.8-13.4)
--- NOTE | 2022-11-09 18:32 | NUR ---
Consent signed per pt with platen drier operator and Dr. Banda agreeing to administration of blood. Blood has been type and crossmatched. Blood sent from blood bank. Information on unit of blood checked against patient wristband at bedside by two nurses. All information matches. Patient or responsible alliance party informed of potential complications associated with blood transfusion. Informed of possible transfusion reaction symptoms. Aware of need to notify nurse at once of itching, shortness of breath, flushing, feeling of impending doom, or other symptoms not previously present. Vital signs taken within 5 minutes prior to initiation of transfusion. RN at bedside.
--- NOTE | 2022-11-09 19:00 | NUR ---
No reaction noted, pt tolerating blood transfusion well. Transfusion increased to 150ml/hr. Pt on bedside monitor.
--- NOTE | 2022-11-09 19:20 | NUR ---
Pt report given to STAS Metz. Transfer of care at this time.
--- NOTE | 2022-11-09 19:20 | NUR ---
RECEIVED PT AWAKE. BLOOD TRANSFUSING.
--- NOTE | 2022-11-09 19:50 | NUR ---
RESTING COMFORTABLY. IS SLIGHTLY PALE, SKIN IS WARM AND DRY. CM REMAINS SR WITHOUT ECTOPY
[2022-11-09] MEDS ORDERED: ACETAMINOPHEN 325 MG TAB PO PRN (20:45)
[2022-11-09] MEDS ORDERED: ONDANSETRON 4 MG/2 ML VIAL IVP PRN (20:45)
[2022-11-09] MEDS ORDERED: LORazepam 2 MG/ML VIAL IVP PRN (20:45)
[2022-11-09] MEDS ORDERED: MORPHINE SULFATE 2 MG/ML SYR IVP PRN (20:45)
--- NOTE | 2022-11-09 21:45 | NUR ---
ADMITTED PT FROM ER WITH CHIEF COMPLAINTS OF WEAKNESS, DIZZINESS, PALPITATION, BLOOD IN THE STOOL X 5 DAYS. PT WITH DIAGNOSIS OF LOWER GI BLEED. PT IS FULL CODE WITH ALLERGY OF STREPTOMYCIN. PT IS ABLE TO AMBULATE INDEPENDENTLY TO REST ROOM WITH STEADY GAIT. PT IS AWAKE, ALERT AND ORIENTED X 4. CURRENTLY, PT IS NPO. IV SITE IS ON LEFT AC 20G WITH NS INFUSING AT 125ML/HR. PT RECEIVED 1 UNIT OF BLOOD TRANSFUSION IN ER.
[2022-11-09] MEDS: PANTOPRAZOLE 40 MG INJ VIAL IVP SCH (22:00)
[2022-11-09] MEDS: NACL 0.9% 1,000 ML IV SCH (22:00)
--- NOTE | 2022-11-09 22:00 | NUR ---
ORIENT PT TO ROOM AND SURROUNDING. NASAL SWAB FOR MRSA TAKEN AND SENT TO LAB. STARTS IV FLUIDS OF NS AT 125ML/HR AND NIGHT MEDICATION ADMINISTERED ORDERED.
--- NOTE | 2022-11-10 00:15 | NUR ---
RECEIVED [facility] LAB RESULT = 8.5.
[2022-11-10 04:00] VITALS: BP 97/59
--- NOTE | 2022-11-10 04:30 | NUR ---
NO BM IN THIS SHIFT. PT DENIES OF PAIN, DISCOMFORT OR ABDOMINAL PAIN.
[2022-11-10 05:56] LABS: BASOPHILS % (AUTO) 1.1 % (0.0-2.0); EOSINOPHILS # (AUTO) 0.1 K/uL (0-0.4); HEMATOCRIT 24.3 % (36-48); HEMOGLOBIN 8.1 g/dL (12.0-16.0); LYMPHOCYTES # (AUTO) 1.3 K/uL (2.5-16.5); LYMPHOCYTES % (AUTO) 38.3 % (20.5-51.1); MEAN CORPUSCULAR HEMOGLOBIN 27 pg (27-31); MEAN CORPUSCULAR HGB CONC 33 g/dL (33-37); MONOCYTES # (AUTO) 0.3 K/uL (0.8-1.0); MONOCYTES % (AUTO) 8.7 % (1.7-9.3); NEUTROPHILS # (AUTO) 1.6 K/uL (1.8-7.7); NEUTROPHILS % (AUTO) 48.9 % (42.2-75.2); PLATELET COUNT (AUTO) 188 K/uL (140-450); RED BLOOD CELL COUNT(AUTO) 2.96 MIL/uL (4.20-5.40); RED CELL DISTRIBUTION WIDTH 16.8 % (11.6-13.7); WHITE BLOOD COUNT (AUTO) 3.4 K/uL (4.8-10.8)
[2022-11-10 06:24] LABS: ALBUMIN 3.3 g/dL (3.4-5.0); ANION GAP 11.5 (8-16); CARBON DIOXIDE 25.9 mmol/L (21-32); CREATININE 0.7 mg/dL (0.6-1.3); MAGNESIUM 2.2 mg/dL (1.8-2.4); POTASSIUM 3.4 mmol/L (3.5-5.1); TOTAL BILIRUBIN 0.7 mg/dL (0.0-1.0)
--- NOTE | 2022-11-10 07:30 | NUR ---
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
[2022-11-10 08:00] VITALS: BP 107/66
[2022-11-10] MEDS: NACL 0.9% 1,000 ML IV SCH ×3 (08:00→20:45)
[2022-11-10] MEDS: PANTOPRAZOLE 40 MG INJ VIAL IVP SCH ×2 (08:42→20:52)
--- NOTE | 2022-11-10 08:55 | NUR ---
PATIENT HAS BEEN SCREENED AND CATEGORIZED MODERATE NUTRITION RISK. PATIENT WILL BE SEEN WITHIN 3-5 DAYS OF ADMISSION. REVIEWED BY HARSHA TERRELL RD
[2022-11-10] MEDS ORDERED: KCL 20 MEQ/WATER INJ PREMIX 100 ML IV SCH (09:00)
[2022-11-10] MEDS ORDERED: diphenhydrAMINE 50 MG/ML VIAL ONE (10:18)
[2022-11-10] MEDS ORDERED: fentaNYL citrate 0.05 MG/ML VIAL ONE (10:18)
[2022-11-10] MEDS ORDERED: MIDAZOLAM 5 MG/5 ML VIAL ONE (10:19)
--- NOTE | 2022-11-10 10:52 | NUR ---
PATIENT WAS ON NPO FOR EGD SCOPY.PATIENT REFUSED FOR THE PROCEDURE WHEN OR NURSE CAME.MD NOTIFIED.CANCELLED THE NPO TO CLEAR LIQUID DIET .
[2022-11-10 12:00] VITALS: BP 123/73
[2022-11-10 15:11] LABS: HEMATOCRIT 26.2 % (36-48); HEMOGLOBIN 8.5 g/dL (12.0-16.0)
--- NOTE | 2022-11-10 15:46 | NUR ---
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 PT RESIDES IN A TOWNHOUSE, ALONE AT THE ADDRESS LISTED ON FILE. PT IDENTIFIED ALEN DEE, CHILD [phone] EMERGENCY CONTACT. PT DENIES AD IN PLACE AND DECLINED AD OFFERED BY HENNA. PT STRUGGLED TO RECALL LAST VISIT WITH PCP AND REPORTS MEETING WITH A GI IN Sep. SW SPOKE TO PT ABOUT IMPORTANCE OF FOLLOW UP CARE, PT RECEPTIVE HOWEVER DECLINED FOR SW TO SCHEDULE FOLLOW UP APPT. PT REPORTS SHE WILL BE RETURNING TO HER HOME COUNTRY ( [place] ) TO VISIT, AND DOES NOT REQUIRE F/UP APPT. PT DENIES TAKING MEDICATION AT THIS TIME HOWEVER, REPORTS RECEIVING MEDICATION FROM [facility] [address], IN [place], WHEN NEEDED. PT REPORTS BEING INDEPENDENT IN ALL ACTIVITIES AND DENIES USE OF DME. PT DENIES HX OF DIABETES, DIALYSIS, HH, SNF PLACEMENT. PT REPORTS ADEQUATE FOOD IN THE HOME AND REPORTS DC PLAN IS TO RETURN HOME. PT REPORTS HER SON WILL PROVIDE TRANSPORTATION HOWEVER, MAY REQUIRE [employer] SERVICE. SW ENCOURAGED PT TO NOTIFY NURSE ONCE CLEARED FOR DC SO [employer]ICE CAN BE ARRANGED IF NEEDED. Addendum: 11/10/22 at 1548 by Virginie MEEKS Amended: Links added.
[2022-11-10 16:00] VITALS: BP 104/67
--- NOTE | 2022-11-10 19:30 | NUR ---
RECEIVED REPORT FROM DAYS SHIFT NURSE CHUCK FOR CONTINUITY OF CARE. PATIENT IS A&O X4, MANDARIN SPEAKING. PATIENT IS ON ROOM AIR; BREATHING IS NORMAL WITH SYMMETRICAL RISE AND FALL OF CHEST. IV IS A 20G LAC, RUNNING NS 125. PATIENT IS USING COMMODE AT BEDSIDE. PATIENT IS AWAKE SITTING HIGH-FOWLERS IN BED; BED IS IN LOWEST POSITION, WHEELS LOCKED, CALL LIGHT IN PLACE. WILL CONTINUE TO OBSERVE PATIENT.
[2022-11-10 20:00] VITALS: BP 114/78
[2022-11-10] MEDS: POLYETHYLENE GLYCOL 17 GM/PKT PO SCH (20:52)
[2022-11-11] VITALS: BP 92/58
[2022-11-11] MEDS: NACL 0.9% 1,000 ML IV SCH ×3 (00:15→09:42)
[2022-11-11 04:00] VITALS: BP 105/70
--- NOTE | 2022-11-11 04:30 | NUR ---
PATIENT HAS SLEPT THROUGHOUT THE NIGHT. COMMODE IS STILL BY PATIENT'S BEDSIDE. IV IS STILL PATENT, RUNNING NS 125. WILL CONTINUE TO OBSERVE PATIENT.
--- NOTE | 2022-11-11 07:29 | NUR ---
ENDORSED TO DAY SHIFT NURSE YURY FOR CONTINUITY OF CARE. PATIENT IS STABLE.
[2022-11-11 08:00] VITALS: BP 106/67
[2022-11-11] MEDS: PANTOPRAZOLE 40 MG INJ VIAL IVP SCH (08:20)
[2022-11-11] MEDS: POLYETHYLENE GLYCOL 17 GM/PKT PO SCH (08:20)
--- NOTE | 2022-11-11 09:40 | NUR ---
PT IS A&O, MANDARIN SPEAKING ONLY, DR WAYNE AT BEDSIDE TO TRANSLATE. PT REFUSING AM MEDS, CARE IN GENERAL AND PIV REMOVED PER PT REQUEST. AWARE. AWAITING LAB RESULTS.
[2022-11-11 10:04] LABS: BASOPHILS % (AUTO) 0.8 % (0.0-2.0); EOSINOPHILS # (AUTO) 0.1 K/uL (0-0.4); EOSINOPHILS % (AUTO) 2.9 % (0.0-4.0); HEMATOCRIT 26.1 % (36-48); HEMOGLOBIN 8.8 g/dL (12.0-16.0); LYMPHOCYTES # (AUTO) 0.8 K/uL (2.5-16.5); LYMPHOCYTES % (AUTO) 24.9 % (20.5-51.1); MEAN CORPUSCULAR HEMOGLOBIN 27 pg (27-31); MEAN CORPUSCULAR HGB CONC 34 g/dL (33-37); MEAN CORPUSCULAR VOLUME 80.9 fL (80-94); MONOCYTES # (AUTO) 0.2 K/uL (0.8-1.0); MONOCYTES % (AUTO) 6.4 % (1.7-9.3); NEUTROPHILS # (AUTO) 2.1 K/uL (1.8-7.7); PLATELET COUNT (AUTO) 198 K/uL (140-450); RED BLOOD CELL COUNT(AUTO) 3.23 MIL/uL (4.20-5.40); RED CELL DISTRIBUTION WIDTH 16.8 % (11.6-13.7); WHITE BLOOD COUNT (AUTO) 3.2 K/uL (4.8-10.8)
[2022-11-11] MEDS ORDERED: PANT40EC PO (11:51)
--- NOTE | 2022-11-11 12:40 | NUR ---
PT D/C TO HOME PER MD ORDER. PT IS A&O X4, AMBULATORY. REFUSED VITAL SIGNS ON D/C. PT WAS GIVEN D/C INSTRUCTIONS AND EDUCATION/D/C PAPERWORK. NO QUESTIONS.
== END 2022-11-11 12:37 | disposition home or self-care (01) | DRG 253 ==
LOC: MED 13:08 → EDBEDREQTM 16:05 → MTU 20:50
PROVIDERS: ADMIT Hospitalist; ATTEND Hospitalist
PROC: 30233N1 Transfusion of Nonautologous Red Blood Cells into Peripheral Vein, Percutaneous Approach (ICD-10-PCS; principal; 2022-11-09)
DX: K92.2 Gastrointestinal hemorrhage, unspecified (principal); Z20.822 Contact with and (suspected) exposure to COVID-19; D62 Acute posthemorrhagic anemia; Z79.899 Other long term (current) drug therapy; Z88.8 Allergy status to other drugs, medicaments and biological substances
CPT/HCPCS: 36415; 36430; 71045; 74018; 80053; 83735; 83880; 84484; 85018; 85025; 85610; 85730; 86886; 86900; 86901; 86920; 87081; 96374; 99285; C9113; J1200; J2060; J2250; J3010; J3480; P9016; Q0092